=== PATIENT | male | born 1985 | race Caucasian/White ===

== ENCOUNTER 2017-06-10 19:29 | Emergency (ER) | payer OTHER ==
--- NOTE | 2017-06-10 19:33 | EDPHY ---
H & P Time Seen by Provider: 06/10/17 19:32 HPI/ROS: HPI: This is a 32-year-old male who presents with Chief Complaint: Fall, eye pain Location: Left eye Quality: Injury Duration: Prior to arrival Signs and Symptoms: + LOC, No bleeding, no radiation, no numbness, no weakness, no tingling, no incontinence, no decreased range of motion, + swelling, + pain, no fever Timing: Sudden Severity: Moderate Context: Patient was playing soccer, when he collided with another player, which caused him to fall forward hitting his left side of his face directly into the grass. Bystander and significant other who was on the sidelines; reports that patient had loss of consciousness for approximately 3-5 minutes. He woke up disoriented and confused. Denies head injury/neck pain/dizziness/ nausea/vomiting/amnesia. No prior history of concussion. Ambulatory after a few minutes. Reports tetanus up-to-date. Modifying Factors: None Comment: ROS: see HPI Constitutional: No fever, no chills, no weight loss Eyes: No blurred vision Respiratory: No shortness of breath, no cough Cardiovascular: No chest pain Gastrointestinal: No nausea, no vomiting no diarrhea Genitourinary: No dysuria Extremities: No myalgias Neurologic: No weakness, no numbness Skin: No rashes Hematologic: No bruising, no bleeding MEDICAL/SURGICAL/SOCIAL HISTORY: Medical history: Generally healthy. Does not take any regular medications. Surgical history: Denies Social history: Employed. CONSTITUTIONAL: Adult white male, polite and cooperative, awake and alert, no obvious distress HEENT: normocephalic, PERRL, EOMI. no globe entrapment, no raccoon eyes. Left suborbital mild swelling and ecchymosis noted. no Andrews signs.Tympanic membranes clear. No tympanic membrane rupture. Nares patent; no septal hematoma. Oropharynx clear, no exudate and moist pink mucosa. No malocclusion. no dental trauma. Airway patent. No lymphadenopathy. NECK: supple, no midline tenderness, flexion 45 degrees, extension 45 degrees, right and left lateral flexion 45 degrees. No meningismus. Cardiovascular: Normal S1/S2, regular rate, regular rhythm, without murmur rub or gallop. PULMONARY/CHEST: Symmetrical and nontender. no crepitus. Clear to auscultation bilaterally. Good air movement. No accessory muscle usage. ABDOMEN: Soft, nondistended, nontender, no ecchymosis, no rebound, no guarding , no peritoneal signs, no masses or organomegaly. No CVAT. PELVIC: no pain with rocking; bilateral hips flexion 125 degrees, extension 30 degrees, with no pain internal rotation and no pain external rotation. BACK: No midline tenderness, no paraspinous spasm, deep tendon reflexes 2/2, no pain with straight leg raise EXTREMITIES: 2/2 pulses, no deformities, no clubbing, no cyanosis or edema. NEUROLOGICAL: no focal neuro deficits. GCS 15. Alert and oriented x3. Short- term memory deficits noted. Ambulatory without deficits. SKIN: Warm and dry, no erythema. no rash. Good capillary refill. Source: Patient Exam Limitations: No limitations Constitutional: Initial Vital Signs Temperature (C) 37.1 C 06/10/17 19:36 Heart Rate 76 06/10/17 19:36 Respiratory Rate 18 06/10/17 19:36 Blood Pressure 107/69 06/10/17 19:36 O2 Sat (%) 99 06/10/17 19:36 O2 Delivery Mode Room Air Allergies/Adverse Reactions: No Known Allergies Allergy (Unverified 06/10/17 19:39) Medical Decision Making - Diagnostics Imaging Results: Imaging Impressions Face CT 06/10/17 19:37 Impression: No evidence of fracture. Small left orbital contusion. Findings were communicated by telephone with Dr. Michelle Alaniz at 06/10/2017 21 :[address] 06/10/17 19:37 Impression: 1. Linear hyperdensity in the posterior corpus callosum more likely calcification than an isolated acute injury on the basis of location, mechanism of injury and morphology. Consider reimaging if symptomatically warranted. 2. Left supraorbital contusion without fracture. Findings were communicated by telephone with Dr. Michelle Alaniz at 06/10/2017 21 :01 ED Course/Re-evaluation: Based on [place] head CT protocol; + LOC with memory deficits noted. Patient and significant other request imaging of the head. Head CT scan and maxillofacial CT scan ordered. No signs of globe entrapment/facial fracture + concussion noted. Verbal and written instructions for concussion precautions given. 2055: Called by radiologist who advised that no facial fracture seen. + small area on the left side in the linear corpus callosum the has an unusual appearance as isolated with a low yield for hemorrhage more like a calcification. Advised patient that if he has worsening symptoms; to return for repeat imaging. This patient was seen under the supervision of my secondary supervising physician. I evaluated care for this patient independently. Differential Diagnosis: Head injury including but not limited to concussion, skull fracture, intraparenchymal contusion, subarachnoid, subdural and epidural hematoma. - Data Points Medications Given: Discontinued Medications Oxycodone/Acetaminophen (Percocet 5/325mg Prepack#4) 1 btl TAKEHOME EDNOW ONE Stop: 06/10/17 20:59 Last Admin: 06/10/17 21:22 Dose: 1 btl Departure - Departure Disposition: Home, Routine, Self-Care Clinical Impression: Head injury with loss of consciousness Concussion Qualifiers: Encounter type: initial encounter Loss of consciousness presence/duration: with LOC of 30 min or less Qualified Code(s): S06.0X1A - Concussion with loss of consciousness of 30 minutes or less, initial encounter Contusion, eye, left Qualifiers: Encounter type: initial encounter Qualified Code(s): S05.12XA - Contusion of eyeball and orbital tissues, left eye, initial encounter Condition: Good Instructions: Black Eye (ED), Concussion (ED), Facial Contusion (ED) Additional Instructions: CT maxillofacial scan shows no fracture. Head CT scan shows small unusual isolated area on the left side; appears to be calcification. If you have worsening neurological symptoms, return to the emergency room immediately as you will need repeat imaging. Please observe concussion precautions. Do not drive until all symptoms have resolved. Do not engage in any physical or direct contact activities. Take Tylenol 650 mg every 4 hr and/or ibuprofen 600 mg every 8 hr as needed for pain, headache. Apply ice to your left eye for 30 minutes at a time; 2-3 times per day for the next 1-2 days. Follow up with Dr. Noel in the concussion Clinic in the next 1-2 weeks. Return to the ER immediately if you have progressive headaches, neurologic deficits, gait abnormality, visual disturbance, slurred speech, or any other symptom that concerns you. Referrals: Julia Noel MD [Medical Doctor] - As per Instructions
[2017-06-10] MEDS ORDERED: OXYCODONE/APAP 5/325MG PREPACK#4 BTL TAKEHOME ONE (20:58)
[2017-06-10 21:26] VITALS: BP 103/59
== END 2017-06-10 21:31 | disposition home or self-care (01) ==
LOC: EDUNIT#
DX: S06.0X1A Concussion with loss of consciousness of 30 minutes or less, initial encounter (principal); S05.12XA Contusion of eyeball and orbital tissues, left eye, initial encounter; W50.1XXA Accidental kick by another person, initial encounter; Y99.8 Other external cause status; Y93.66 Activity, soccer